=== PATIENT | male | born 1980 | race Hispanic/Latino ===

== ENCOUNTER 2024-03-31 13:00 | Emergency (ER) | payer BC ==
[~2024-03-31] VITALS: Ht 172.7 cm; Wt 102.5 kg
--- NOTE | 2024-03-31 13:12 | ERN ---
ED Note History of Present Illness Stated Complaint: HAND NUMB AND SWOLLEN AFTER SURGERY PROCEDURE Time Seen by MD: 13:02 Dictation: Patient is a 44-year-old male who is here with complaints of numbness and tingling to his left arm and hand with some swelling to the forearm onset was this morning. He states [place] [facility] [place] was discharged home everything was intact when he left. No erythema to left arm full range of motion noted. Distal neurovascular CMS grossly intact cap refill less than 2 seconds, Jimbo's test is negative Allergies: Coded Allergies: No Known Allergies (Unverified Allergy, Unknown, 03/31/24) Past Medical History RN Note Reviewed/Agreed w/[facility]SH: Yes Review of System Dictation CONSTITUTIONAL: Negative except for HPI HEAD/FACE: Negative except for HPI EENT: Negative except for HPI RESPIRATORY: Negative except for HPI GASTROINTESTINAL/ABDOMINAL: Negative except for HPI GENITOURINARY: Negative except for HPI MUSCULOSKELETAL: Negative except for HPI swelling left forearm INTEGUMENTARY: Negative except for HPI NEUROLOGICAL/PSYCH: Negative except for HPI numbness and tingling to fingertips left hand HEMATOLOGIC/LYMPHATIC: Negative except for HPI All Systems Negative, Except as noted above. 13 point review of systems assessed and all negative except for above. Initial Vital Sign VS Vital Signs Date Time Temp Pulse Resp B/P (MAP) Pulse Ox O2 Delivery O2 Flow Rate FiO2 03/31/24 13:59 98.8 67 16 146/93 97 Room Air 0 Physical Exam Dictation Vital Signs reviewed General Appearance: Alert, oriented x 3, no acute distress, well developed, nourished. Head and Face: non-traumatic. Eyes: PERRL, pink conjunctivas, eyelid no trauma, anterior chamber with arcus senilis. Ears: Pinnas intact and no signs of trauma or erythema ear canals clear and no discharge TM no erythema Nose: No discharge, no bleeding. Oropharynx: Mouth normal, tongue pink, pharynx clear,no erythema, tonsils no exudates, no abscesses noted, mucous membrane moist Neck: Supple, non-tender, no thyromegaly, no masses, no JVD, no bruits Breast:Deferred Chest:No tenderness, no crepitus, no paradoxical movement, no retractions Lungs:Clear, well-ventilated, symmetric, no rales, no wheezing, no rhonchi, no stridor, good breath sounds bilaterally Heart: Regular rate, regular rhythm, no murmur, no gallops Vascular: no peripheral edema, Abdomen: Soft, positive bowel sounds, nondistended, no guarding, nontender, no rebound, no masses no hepatomegaly, no splenomegaly, no Henry's sign, no hernias. Rectal: Deferred Genital: Deferred Neurological: Normal speech, motor function intact, sensory function intact Musculoskeletal: Neck nontender, full range of motion, back nontender, full range of motion, Extremities: nontender, full range of motion Skin: Color pink, dry, no turgor, no rash, no lacerations, no abrasions, no contusions. Puncture sites to left medial forearm and hand. No erythema no swelling. Full range of motion of the hand, cap refill less than 2 seconds. Sensation intact Lymphatic: Deferred Results (Laboratory/Radiology) Laboratory/Radiology Laboratory Tests Test 03/31/24 14:17 White Blood Count 12.8 K/uL (4.8-10.8) H Red Blood Count 4.82 MIL/uL (4.50-6.20) Hemoglobin 13.5 g/dL (14.0-18.0) L Hematocrit 41.7 % (42-54) L Mean Corpuscular Volume 86.5 fL (79-99) Mean Corpuscular Hemoglobin 28.0 pg (27.0-33.0) Mean Corpuscular Hemoglobin Concent 32.4 g/dL (32.0-36.0) Red Cell Distribution Width 13.4 % (11.0-15.5) Platelet Count 196 K/uL (130-400) Mean Platelet Volume 10.6 fL (7.5-10.5) H Nucleated Red Blood Cells 0.0 % (0.0-0.19) Sodium Level 142 mmol/L (136-145) Potassium Level 3.8 mmol/L (3.5-5.1) Chloride Level 102 mmol/L (101-111) Carbon Dioxide Level 31 mmol/L (21-32) Blood Urea Nitrogen 15 mg/dL (7-18) Creatinine 1.0 mg/dL (0.5-1.3) Glomerular Filtration Rate Calc 94 mL/min (>90) Random Glucose 89 mg/dL (70-105) Total Calcium 8.4 mg/dL (8.5-10.1) L Exam Type: US VENOUS DOPPLER UNILATERAL Clinical Information: LEFT FOREARM SWELLING AND HAND SWELLING STATUS POST IV YESTERDAY Comparison: None Findings: The examination shows normal deep venous system. There is normal compressibility at all levels. There is no intraluminal clot. There is no occlusion. Adequate response is obtained on augmentation. Impression: No evidence of DVT. Labs Reviewed?: Yes ED Course ED Course Orders Procedure Category Date Status Time Us Venous Doppler US 03/31/24 Resulted Unilateral 13:08 Cbc Without LAB 03/31/24 Complete Differential 13:09 Basic Metabolic Panel LAB 03/31/24 Complete 13:09 Vital Signs Date Time Temp Pulse Resp B/P (MAP) Pulse Ox O2 Delivery O2 Flow Rate FiO2 03/31/24 13:59 98.8 67 16 146/93 97 Room Air 0 1550/NO CHANGE IN NEUROVASCULAR STATUS. FULL RANGE OF MOTION TO LEFT HAND SKIN IS WARM. Medical Decision Making MDM MEDICAL DISCHARGE MAKING BASED ON BASIC LABS AND HER ULTRASOUND RULE OUT DVT. ALL WORKUP IS COMPLETELY NEGATIVE SUSPECT PARESTHESIAS DUE TO SWELLING AFTER IV THAT COMPRESSION NERVE TOLD WARM COMPRESSES AND FOLLOW UP WITH HIS PRIMARY CARE DOCTOR DX & DISP Disposition: Discharge Departure Impression: Primary Impression: Paresthesias in left hand Condition: Stable Additional Instructions: FOLLOW-UP WITH PRIMARY CARE PROVIDER IN 1 TO 2 DAYS. TAKE MEDICATIONS DIRECTED HERE IN THE EMERGENCY ROOM. OKAY TO CONTINUE HOME MEDICATIONS UNLESS OTHERWISE DISCUSSED DURING YOUR VISIT IN THE EMERGENCY ROOM TODAY. RETURN TO YOUR NEAREST EMERGENCY ROOM IF SYMPTOMS WORSEN OR IF THERE IS NO IMPROVEMENT. CALL 911 IF YOU NEED IMMEDIATE ASSISTANCE. TAKE TYLENOL OR MOTRIN [id number] NEEDED AND IF NO CONTRAINDICATIONS ARE PRESENT. INCREASE ORAL HYDRATION. A WOUND CULTURE OR URINE CULTURE WAS ORDERED HERE IN THE EMERGENCY ROOM DEPARTMENT PLEASE FOLLOW-UP WITH PRIMARY CARE PROVIDER AND ADVISE THEM TO GET REPEAT PORTS FROM OUR FACILITY. IF YOU HAD ANY AXEL WRAP/SPLINTS THAT WERE APPLIED HERE, PLEASE DO NOT REMOVE THEM UNTIL YOU SEE YOUR PRIMARY CARE OR SPECIALTY. WARM COMPRESSES TO ARM THREE TO 4 TIMES A DAY. ACTIVITY TOLERATED AND FOLLOW UP WITH YOUR PRIMARY CARE DOCTOR IN 1-2 DAYS. Referrals: SELF,REFERRAL (PCP) Time of Disposition: 15:51 I have reviewed the case, and I agree with, Diagnosis and Plan JUSTIN BARTLETT NP Mar 31, 2024 13:12
--- NOTE | 2024-03-31 14:07 | HMCIMG ---
Exam Type: US VENOUS DOPPLER UNILATERAL Clinical Information: LEFT FOREARM SWELLING AND HAND SWELLING STATUS POST IV YESTERDAY Comparison: None Findings: The examination shows normal deep venous system. There is normal compressibility at all levels. There is no intraluminal clot. There is no occlusion. Adequate response is obtained on augmentation. Impression: No evidence of DVT.
[2024-03-31 15:19] LABS: HEMATOCRIT 41.7 % (42-54); MEAN CORPUSCULAR HGB CONC 32.4 g/dL (32.0-36.0); MEAN CORPUSCULAR VOLUME 86.5 fL (79-99); RED BLOOD CELL COUNT(AUTO) 4.82 MIL/uL (4.50-6.20); RED CELL DISTRIBUTION WIDTH 13.4 % (11.0-15.5); WHITE BLOOD COUNT (AUTO) 12.8 K/uL (4.8-10.8)
[2024-03-31 15:34] LABS: POTASSIUM 3.8 mmol/L (3.5-5.1)
[2024-03-31 16:44] VITALS: BP 139/96; PULSE 75; RESP 16; TEMP 98.8; O2SAT 97
== END 2024-03-31 16:59 | disposition home or self-care (01) ==
LOC: EDH 13:00
DX: R20.2 Paresthesia of skin (principal); M79.632 Pain in left forearm
CPT/HCPCS: 36415; 80048; 85027; 93971; 99284